=== PATIENT | female | born 1945 | race Caucasian/White ===

== ENCOUNTER → 2017-07-10 | Day surgery (SDC) | payer OTHER ==
[2017-05-17 11:19] VITALS: Ht 167.6 cm; Wt 77.3 kg
[~2017-07-10] VITALS: Ht 167.6 cm; Wt 77.3 kg
[~2017-07-10] MED LIST: ASPI81TA28 PO; AcetaZOLAMIDE 250 MG TAB PO SCH; BETAXOLOL HCL 0.25% OP SUSP PER DROP CHARGE OPR SCH; CALC600T9 PO; CHOL1000 PO; COEN60CA PO; CYCLOPENTOLATE HCL 1% OP SOLN PER DROP CHARGE OPR SCH; DIGITEK PO; DOCU100C PO; LACTATED RINGER'S 1000ML 500 ML IV SCH; LIDOCAINE 4% OP SOLN DROP CHARGE OPR SCH; METO25TA3 PO; MOXIFLOXACIN OPH SOLN PER DROP CHARGE OPR SCH; MULT-506 PO; OMEG10007 PO; PHENYLEPHRINE HCL 2.5% OP SOLN PER DROP CHARGE OPR SCH; PROPARACAINE 0.5% OP SOLN PER DROP CHARGE OPR SCH; PRVC/20 PO; PRVC20 PO; TROPICAMIDE 1% OP SOLN PER DROP CHARGE OPR SCH; WARF4TAB8 PO; WHEAPOW13 PO
== END | disposition home or self-care (01) ==
LOC: EDSTATUS 07:00 → C.PAT 16:00
PROVIDERS: ATTEND Specialist
DX: H25.11 Age-related nuclear cataract, right eye (principal); I48.91 Unspecified atrial fibrillation; I10 Essential (primary) hypertension; Z79.01 Long term (current) use of anticoagulants; Z79.82 Long term (current) use of aspirin; Z53.9 Procedure and treatment not carried out, unspecified reason